=== PATIENT | male | born 1990 | race Caucasian/White ===

== ENCOUNTER 2024-12-22 20:42 | Emergency (ER) | payer OTHER ==
[2024-12-22] MEDS ORDERED: predniSONE 20 MG TAB ONE ×2 (21:19→21:20)
[2024-12-22] MEDS ORDERED: EPINEPHrine 1 MG/ML VIAL ONE (21:20)
[2024-12-22] MEDS ORDERED: Famotidine/PF 20 mg/2ml Vial ONE (21:21)
== END 2024-12-22 22:19 | disposition home or self-care (01) ==
LOC: ERS 20:42 → EEVIPCON 20:42 → ERS 22:19
DX: T78.2XXA Anaphylactic shock, unspecified, initial encounter (principal)
CPT/HCPCS: 96372; 96374; J0171; J3490; J7512